=== PATIENT | male | born 2000 | race Caucasian/White ===

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

== ENCOUNTER 2024-01-19 09:14 | Emergency (ER) | payer OTHER, SELFPAY ==
[~2024-01-19] VITALS: Ht 177.8 cm; Wt 88.9 kg
[2024-01-19] MEDS ORDERED: ANUS25SU PR (11:23)
[2024-01-19] MEDS ORDERED: DIBU28OI2 TOP (11:25)
[2024-01-19 11:44] VITALS: BP 122/73; TEMP 97.9; O2SAT 100
[2024-01-19] MEDS: ANUSOL HC 25MG SUPP PR STA (11:45)
== END 2024-01-19 11:58 | disposition home or self-care (01) ==
LOC: M ED 09:14
DX: K64.8 Other hemorrhoids (principal)

== ENCOUNTER 2024-02-11 14:29 | Emergency (ER) | payer OTHER ==
[~2024-02-11] VITALS: Ht 177.8 cm; Wt 92.1 kg
[~2024-02-11 14:29] MED LIST: ANUS25SU PR; DIBU28OI2 TOP
[2024-02-11] MEDS ORDERED: ANUS25SU PR (19:41)
[2024-02-11] MEDS ORDERED: COLA100C5 PO (19:41)
[2024-02-11 19:57] VITALS: BP 131/75; TEMP 98.2; O2SAT 99
== END 2024-02-11 19:58 | disposition home or self-care (01) ==
LOC: M ED 14:29
DX: K64.8 Other hemorrhoids (principal); Z79.899 Other long term (current) drug therapy